=== PATIENT | female | born 1945 | race Two or more races ===

== ENCOUNTER → 2022-10-28 | Day surgery (SDC) | payer MEDICARE ==
[~2022-10-28] VITALS: Ht 154.9 cm; Wt 61.2 kg
[~2022-10-28] MED LIST: ACETAMINOPHEN IV 100 ML IV ONE; ACETAMINOPHEN IV 1000 MG/100ML (10MG/ML) IV ONE; ATOR10TA52 PO; BIOT50007 PO; CARV3.1240 PO; CHOL100055 PO; HYDR-4798 PO; MAGN200T9 PO; METF-370 PO; OMEP20TA PO; PREGABALIN CAPSULE 75 MG CAP PO ONE; SACU1TAB PO; ceFAZolin 1GM/50ML 100 ML IV ONE
[2022-10-28 07:41] LABS: Urine Bacteria MANY /hpf (None Seen); Urine Blood Negative /uL (Negative); Urine Clarity Clear (Clear); Urine Hyaline Cast FEW /lpf (0 - 2); Urine Mucus FEW (None Seen); Urine Protein, UAD Negative (Negative); Urine Specific Gravity 1.007 (1.001-1.035); Urine Urobilinogen Normal (Negative); Urine WBC 42 /hpf (0 - 5); Urine pH 5.5 (5.0-8.0)
[2022-10-28 07:50] LABS: Urine Color Straw (Yellow)
== END | disposition home or self-care (01) ==
LOC: SUR 06:14
PROVIDERS: ATTEND Orthopaedic Surgery Adult Reconstructive Orthopaedic Surgery
DX: M16.11 Unilateral primary osteoarthritis, right hip (principal)
CPT/HCPCS: 81001; 86850; 86900; 86901; J0131; J0690

== ENCOUNTER 2022-11-25 06:15 | Inpatient (IN) | payer MEDICARE ==
[2022-11-21 11:37] LABS: Basophils # (auto) 0 10 ^3/uL (0-0.2); Basophils % (auto) 0.7 % (0.0-2.0); Eosinophils # (auto) 0.1 10 ^3/uL (0-0.8); Eosinophils % (auto) 1.9 % (0.0-7.0); Hematocrit 37.6 % (36.0-46.0); Hemoglobin 12.4 g/dL (12.2-16.2); Lymphocytes # (auto) 1.4 10 ^3/uL (0.4-5.4); Lymphocytes % (auto) 25.3 % (10.0-50.0); Mean Corpuscular Hemoglobin 28.2 pg (28.0-32.0); Mean Corpuscular Volume 85.5 fL (80.0-100.0); Monocytes # (auto) 0.6 10 ^3/uL (0-1.3); Monocytes % (auto) 10.8 % (0.0-12.0); Neutrophils # (auto) 3.5 10 ^3/uL (1.6-8.6); Neutrophils % (auto) 61.3 % (37.0-80.0); White Blood Cell 5.7 10^3/uL (4.4-10.8)
[2022-11-21 11:47] LABS: Urine Bacteria NONE SEEN /hpf (None Seen); Urine Blood Negative /uL (Negative); Urine Clarity Clear (Clear); Urine Color Yellow (Yellow); Urine Mucus FEW (None Seen); Urine Protein, UAD Negative (Negative); Urine Specific Gravity 1.016 (1.001-1.035); Urine Urobilinogen Normal (Negative); Urine WBC 2 /hpf (0 - 5)
[2022-11-21 11:51] LABS: INR 1.02 (0.9-1.15); Partial Thromboplastin Time 29.6 SEC (24.5-34.5); Prothrombin Time 10.7 sec (9.3-11.8)
[2022-11-21 12:21] LABS: Alanine Aminotransferase 16 U/L (7-40); Albumin 4.9 g/dL (3.2-4.8); Alkaline Phosphatase 80 U/L (46-116); Anion Gap 6 (5-15); Aspartate Aminotransferase 11 U/L (13-40); Blood Urea Nitrogen 9 mg/dL (9-23); Calcium 9.8 mg/dL (8.7-10.4); Carbon Dioxide 28 mmol/L (20-30); Chloride 104 mmol/L (98-107); Glucose 95 mg/dL (74-106); Potassium 3.9 mmol/L (3.5-5.1); Sodium 138 mmol/L (136-145)
[2022-11-21 12:22] LABS: Bilirubin, Total 0.7 mg/dL (0.2-1.0); Total Protein 7.5 g/dL (5.7-8.2)
[~2022-11-25] VITALS: Ht 154.9 cm; Wt 72.2 kg
[~2022-11-25 06:15] MED LIST changes: -ACETAMINOPHEN IV 100 ML IV ONE; -ACETAMINOPHEN IV 1000 MG/100ML (10MG/ML) IV ONE; +FISH1CAP7 PO; -PREGABALIN CAPSULE 75 MG CAP PO ONE; -ceFAZolin 1GM/50ML 100 ML IV ONE
[2022-11-25] MEDS ORDERED: ceFAZolin 1GM/50ML 100 ML IV ONE (06:20)
[2022-11-25] MEDS ORDERED: ACETAMINOPHEN IV 100 ML IV ONE (06:23)
[2022-11-25] MEDS ORDERED: ACETAMINOPHEN IV 1000 MG/100ML (10MG/ML) IV ONE (06:30)
[2022-11-25] MEDS ORDERED: PREGABALIN CAPSULE 75 MG CAP PO ONE (06:30)
[2022-11-25] MEDS ORDERED: PREGABALIN CAPSULE 75 MG CAP ONE (06:55)
[2022-11-25] MEDS ORDERED: MORPHINE SULF PF 5 MG/10 ML VIAL ONE (07:12)
[2022-11-25] MEDS ORDERED: BUPIVACAINE 0.25% INJ 50ML VIAL ONE ×2 (07:14→12:34)
[2022-11-25] MEDS ORDERED: TRANEXAMIC ACID 20 ML ONE (07:14)
[2022-11-25] MEDS ORDERED: EPINEPHrine HCL 1 MG/1 ML AMP ONE (07:14)
[2022-11-25] MEDS ORDERED: MIDAZOLAM HCL 2MG/2ML 2ml VIAL (1mg/ml) ONE (07:34)
[2022-11-25] MEDS ORDERED: ROCURONIUM 10MG/ML 10ML VIAL IV ONE (07:35)
[2022-11-25] MEDS ORDERED: ONDANSETRON HCL 4 MG/2 ML VIAL ONE (07:35)
[2022-11-25] MEDS ORDERED: fentaNYL CITRATE 5 ML ONE (07:35)
[2022-11-25] MEDS ORDERED: LIDOCAINE 2% (LOCAL ANESTH.) PF 5ml SDV ONE ×2 (07:35→12:38)
[2022-11-25] MEDS ORDERED: PROPOFOL 10 MG/ML 20 ML IV ONE (08:00)
[2022-11-25] MEDS ORDERED: HYDROmorphone HCL 2 MG/ML VL/or syr ONE (10:37)
[2022-11-25] MEDS ORDERED: NITROGLYCERIN 0.4 MG SL TAB SL PRN (11:30)
[2022-11-25] MEDS ORDERED: MORPHINE SULFATE INJ 2 MG/ml SYRG IV PRN (11:30)
[2022-11-25] MEDS ORDERED: OXYCODONE W/ ACETAMINOPHEN 5/325MG TABLET PO PRN (11:30)
[2022-11-25] MEDS ORDERED: ONDANSETRON HCL 4 MG/2 ML VIAL IV PRN ×2 (11:30→12:45)
[2022-11-25] MEDS: ceFAZolin 1GM/50ML 50 ML IV SCH ×3 (11:30→23:30)
[2022-11-25] MEDS ORDERED: LACTATED RINGER'S 1,000 ML IV SCH (11:30)
[2022-11-25] MEDS ORDERED: DexAMETHasone SOD PHOS 4 MG/1ML SDV INJ ONE (12:34)
[2022-11-25 12:37] VITALS: PULSE 66; RESP 20; O2SAT 99
[2022-11-25] MEDS ORDERED: HYDROmorphone HCL 2 MG/ML VL/or syr IV PRN ×2 (12:45)
[2022-11-25] MEDS ORDERED: DEXTROSE (50%) 50ML SYRG IV PRN (14:30)
[2022-11-25] MEDS: LACTATED RINGER'S 1,000 ML IV SCH (14:48)
[2022-11-25 15:28] VITALS: BP 128/69; PULSE 87; RESP 16; TEMP 96.3; O2SAT 97
[2022-11-25 15:38] VITALS: BP 128/69; PULSE 87; RESP 17; TEMP 97; O2SAT 97
[2022-11-25 17:00] VITALS: BP 116/59; PULSE 80; RESP 20; TEMP 97; O2SAT 98
[2022-11-25] MEDS: InsuLIN REG 1unit/0.01ml Soln (100units/ml) SC SCH ×2 (18:00→23:59)
[2022-11-25] MEDS: ACCU-CHEK COMFORT CURVE STRIP VI SCH ×2 (18:10→23:43)
[2022-11-25] MEDS: HYDROmorphone HCL 2 MG/ML VL/or syr IV PRN ×2 (18:50→23:32)
[2022-11-25 20:00] VITALS: BP 122/73; PULSE 89; PULSE 94; RESP 17; TEMP 98.2; O2SAT 94
[2022-11-25] MEDS: SACUBITRIL-VALSARTAN 24mg/26mg TAB PO SCH (21:09)
[2022-11-25] MEDS: CARVEDILOL 3.125 MG TAB PO SCH (21:10)
[2022-11-25] MEDS: DOCUSATE SOD 100 MG CAP PO SCH (21:10)
[2022-11-25 22:00] VITALS: BP 122/73; PULSE 94; RESP 17; TEMP 98.2; O2SAT 94
[2022-11-26] VITALS (8 sets, daily range): BP systolic 99–121; BP diastolic 42–56; PULSE 89–102; RESP 15–21; TEMP 96.7–99.3; O2SAT 95–98
[2022-11-26] MEDS: HYDROmorphone HCL 2 MG/ML VL/or syr IV PRN ×5 (02:51→18:42)
[2022-11-26] MEDS: LACTATED RINGER'S 1,000 ML IV SCH (03:50)
[2022-11-26] MEDS: InsuLIN REG 1unit/0.01ml Soln (100units/ml) SC SCH ×3 (05:26→18:47)
[2022-11-26] MEDS: ACCU-CHEK COMFORT CURVE STRIP VI SCH ×3 (05:26→18:42)
[2022-11-26 06:47] LABS: Alanine Aminotransferase 13 U/L (7-40); Albumin 3.6 g/dL (3.2-4.8); Alkaline Phosphatase 48 U/L (46-116); Anion Gap 4 (5-15); Aspartate Aminotransferase 29 U/L (13-40); BUN/Creatinine Ratio 9.5 (10.0-20.0); Bilirubin, Total 0.9 mg/dL (0.2-1.0); Blood Urea Nitrogen 6 mg/dL (9-23); Calcium 8.7 mg/dL (8.7-10.4); Carbon Dioxide 29 mmol/L (20-30); Chloride 103 mmol/L (98-107); Glucose 134 mg/dL (74-106); Sodium 136 mmol/L (136-145); Total Protein 5.6 g/dL (5.7-8.2)
[2022-11-26 06:51] LABS: Basophils # (auto) 0 10 ^3/uL (0-0.2); Basophils % (auto) 0.1 % (0.0-2.0); Eosinophils # (auto) 0 10 ^3/uL (0-0.8); Hematocrit 28.4 % (36.0-46.0); Hemoglobin 9.6 g/dL (12.2-16.2); Lymphocytes % (auto) 10.8 % (10.0-50.0); Mean Corpuscular Hemoglobin 28.8 pg (28.0-32.0); Mean Corpuscular Hgb Conc. 33.7 g/dL (32.0-36.0); Mean Corpuscular Volume 85.3 fL (80.0-100.0); Monocytes # (auto) 1.4 10 ^3/uL (0-1.3); Monocytes % (auto) 14.9 % (0.0-12.0); Neutrophils # (auto) 6.7 10 ^3/uL (1.6-8.6); Neutrophils % (auto) 74.2 % (37.0-80.0); Red Blood Cells 3.33 10^6/uL (4.0-5.20); Red Cell Distribution Width 12.3 % (11.8-14.3); White Blood Cell 9.1 10^3/uL (4.4-10.8)
[2022-11-26] MEDS: ATORVASTATIN 20 MG TAB PO SCH (09:29)
[2022-11-26] MEDS: DOCUSATE SOD 100 MG CAP PO SCH ×2 (09:29→21:11)
[2022-11-26] MEDS: PANTOPRAZOLE 40 MG TAB PO SCH (09:29)
[2022-11-26] MEDS: ENOXAPARIN SOD 40 MG/0.4 ML SYRINGE SC SCH (09:29)
[2022-11-26] MEDS: SACUBITRIL-VALSARTAN 24mg/26mg TAB PO SCH ×2 (09:33→21:27)
[2022-11-26] MEDS: CARVEDILOL 3.125 MG TAB PO SCH ×2 (09:33→21:26)
[2022-11-26] MEDS ORDERED: OXYCODONE W/ ACETAMINOPHEN 5/325MG TABLET PO PRN (11:45)
[2022-11-26] MEDS: OXYCODONE W/ ACETAMINOPHEN 5/325MG TABLET PO PRN (15:40)
[2022-11-27] VITALS (7 sets, daily range): BP systolic 99–116; BP diastolic 43–54; PULSE 100–109; RESP 16–20; TEMP 98.3–100.1; O2SAT 95–97
[2022-11-27] MEDS: ACCU-CHEK COMFORT CURVE STRIP VI SCH ×5 (00:24→23:40)
[2022-11-27] MEDS: InsuLIN REG 1unit/0.01ml Soln (100units/ml) SC SCH ×5 (00:27→23:41)
[2022-11-27] MEDS: OXYCODONE W/ ACETAMINOPHEN 5/325MG TABLET PO PRN ×3 (01:28→20:35)
[2022-11-27 06:26] LABS: Hematocrit 27.3 % (36.0-46.0); Hemoglobin 9.2 g/dL (12.2-16.2)
[2022-11-27] MEDS: HYDROmorphone HCL 2 MG/ML VL/or syr IV PRN (08:10)
[2022-11-27] MEDS: SACUBITRIL-VALSARTAN 24mg/26mg TAB PO SCH ×2 (10:01→22:00)
[2022-11-27] MEDS: PANTOPRAZOLE 40 MG TAB PO SCH (10:02)
[2022-11-27] MEDS: ATORVASTATIN 20 MG TAB PO SCH (10:02)
[2022-11-27] MEDS: ENOXAPARIN SOD 40 MG/0.4 ML SYRINGE SC SCH (10:03)
[2022-11-27] MEDS: CARVEDILOL 3.125 MG TAB PO SCH ×2 (10:03→22:00)
[2022-11-27] MEDS: DOCUSATE SOD 100 MG CAP PO SCH ×2 (10:03→21:54)
[2022-11-28 05:18] VITALS: BP 126/53; PULSE 101; RESP 18; TEMP 98.6; O2SAT 97
[2022-11-28] MEDS: InsuLIN REG 1unit/0.01ml Soln (100units/ml) SC SCH ×3 (05:57→17:53)
[2022-11-28] MEDS: ACCU-CHEK COMFORT CURVE STRIP VI SCH ×3 (05:57→17:49)
[2022-11-28 09:09] VITALS: BP 126/66; PULSE 107; RESP 21; TEMP 99; O2SAT 96
[2022-11-28] MEDS: SACUBITRIL-VALSARTAN 24mg/26mg TAB PO SCH ×2 (09:19→21:57)
[2022-11-28] MEDS: DOCUSATE SOD 100 MG CAP PO SCH ×2 (09:20→21:57)
[2022-11-28] MEDS: OXYCODONE W/ ACETAMINOPHEN 5/325MG TABLET PO PRN ×2 (09:20→21:57)
[2022-11-28] MEDS: CARVEDILOL 3.125 MG TAB PO SCH ×2 (09:20→22:00)
[2022-11-28] MEDS: ATORVASTATIN 20 MG TAB PO SCH (09:21)
[2022-11-28] MEDS: ENOXAPARIN SOD 40 MG/0.4 ML SYRINGE SC SCH (09:21)
[2022-11-28] MEDS: PANTOPRAZOLE 40 MG TAB PO SCH (09:21)
[2022-11-28] MEDS ORDERED: HYDROmorphone HCL 2 MG/ML VL/or syr IV PRN (11:30)
[2022-11-28 12:38] VITALS: BP 87/45; PULSE 97; RESP 18; TEMP 98; O2SAT 92
[2022-11-28 17:07] VITALS: BP 103/50; PULSE 85; RESP 19; TEMP 98; O2SAT 97
[2022-11-28 20:00] VITALS: PULSE 95; RESP 20
[2022-11-28 22:00] VITALS: BP 114/59; PULSE 95; RESP 20; TEMP 98; O2SAT 96
[2022-11-29 05:00] VITALS: BP 119/58; PULSE 90; RESP 20; TEMP 97.9; O2SAT 93
[2022-11-29] MEDS: InsuLIN REG 1unit/0.01ml Soln (100units/ml) SC SCH ×3 (06:00→12:00)
[2022-11-29] MEDS: ACCU-CHEK COMFORT CURVE STRIP VI SCH ×3 (06:11→12:00)
[2022-11-29 08:00] VITALS: RESP 20
[2022-11-29 08:57] VITALS: BP 111/49; PULSE 95; RESP 19; TEMP 98; O2SAT 95
[2022-11-29] MEDS: OXYCODONE W/ ACETAMINOPHEN 5/325MG TABLET PO PRN (09:37)
[2022-11-29] MEDS: DOCUSATE SOD 100 MG CAP PO SCH (09:38)
[2022-11-29] MEDS: SACUBITRIL-VALSARTAN 24mg/26mg TAB PO SCH (09:38)
[2022-11-29] MEDS: ATORVASTATIN 20 MG TAB PO SCH (09:38)
[2022-11-29] MEDS: PANTOPRAZOLE 40 MG TAB PO SCH (09:38)
[2022-11-29] MEDS: CARVEDILOL 3.125 MG TAB PO SCH (09:38)
[2022-11-29] MEDS: ENOXAPARIN SOD 40 MG/0.4 ML SYRINGE SC SCH (09:39)
[2022-11-29 12:50] VITALS: BP 90/47; PULSE 81; RESP 16; TEMP 98; O2SAT 95
[2022-11-29 15:53] VITALS: BP 90/47; PULSE 81; TEMP 36.7
[2022-11-29 17:28] VITALS: BP 125/78; PULSE 74; RESP 17; TEMP 97.6; O2SAT 97
== END 2022-11-29 18:07 | disposition home health service (06) | DRG 481 ==
LOC: SUR 06:15 → TELE 11:33 → TELE-WESTW 15:03 → WEST WING 11-28 02:44
PROVIDERS: ADMIT Orthopaedic Surgery Adult Reconstructive Orthopaedic Surgery; ATTEND Nurse Practitioner Acute Care
PROC: BW1C1ZZ Fluoroscopy of Lower Extremity using Low Osmolar Contrast (ICD-10-PCS; 2022-11-25)
PROC: 0QS806Z Reposition Right Femoral Shaft with Intramedullary Internal Fixation Device, Open Approach (ICD-10-PCS; principal; 2022-11-25 07:36)
DX: S72.341A Displaced spiral fracture of shaft of right femur, initial encounter for closed fracture (principal); I50.42 Chronic combined systolic (congestive) and diastolic (congestive) heart failure; M16.11 Unilateral primary osteoarthritis, right hip; I11.0 Hypertensive heart disease with heart failure; E11.9 Type 2 diabetes mellitus without complications; E66.9 Obesity, unspecified; E78.5 Hyperlipidemia, unspecified; Z98.890 Other specified postprocedural states; Z88.2 Allergy status to sulfonamides; Z68.30 Body mass index [BMI] 30.0-30.9, adult
CPT/HCPCS: 36415; 71045; 76000; 80053; 81001; 82962; 83036; 83880; 85014; 85018; 85025; 85610; 85730; 86850; 86900; 86901; 93306; 97110; 97116; 97163; 97530; A4565; C1713; C1769; G0378; J0131; J0171; J0690; J1100; J1815; J2001; J2250; J2405; J2704; J3490